=== PATIENT | female | born 1980 | race American Indian/Alaskan Native ===

== ENCOUNTER 2021-07-06 10:46 | Day surgery (SDC) | payer MEDICAID ==
[~2021-07-06 10:46] MED LIST: SODIUM CHLORIDE 0.9% 1000 ML 1,000 ML IV SCH
[2021-07-06] MEDS ORDERED: WATER FOR IRRIG STERILE 250 ML BOTTLE IR ONE (11:43)
[2021-07-06] MEDS ORDERED: WATER FOR IRRIG STERILE 1,000 ML BOTTLE ONE (11:44)
--- NOTE | 2021-07-06 12:36 | Anesthesia Day of Surgery ---
Anesthesia Day of Surgery - Day of Surgery Patient Examined: Yes Patient H&P Reviewed: Yes Patient is NPO: Yes
--- NOTE | 2021-07-06 12:40 | Anesthesia Consultation ---
Anesthesia Consult and Med Hx Date of service: 07/06/21 - Airway Anesthetic Teeth Evaluation: Good ROM Head & Neck: Adequate Mental/Hyoid Distance: Adequate Mallampati Class: Class I Intubation Access Assessment: Good - Pulmonary Exam CTA: Yes - Cardiac Exam Cardiac Exam: RRR - Pre-Operative Health Status ASA Pre-Surgery Classification: ASA2 Proposed Anesthetic Plan: MAC - Pulmonary Hx Smoking: No Hx Asthma: Yes Hx Sleep Apnea: Yes (Resolved with weight loss) - Cardiovascular System Hx Hypertension: Yes (Resolved with weight loss) - Gastrointestinal Hx Gastroesophageal Reflux Disease: Yes (Gastric bypass 2016) - Endocrine Hx Insulin Dependent Diabetes: Yes (Gastric bypass 2016) - Hematic Hx Anemia: Yes (in past) - Other Systems Hx Alcohol Use: Yes (OCCAS) Hx Obesity: Yes
[2021-07-06] MEDS ORDERED: propofoL 200 MG/20 ML VIAL IV ONE ×2 (12:52→12:53)
--- NOTE | 2021-07-06 13:40 | Procedure Note ---
Date of procedure: 07/06/21 Pre-op diagnosis: Abdominal/ F/H/O gastric Cancer/ S/P Gastric Bypass/ R/O Colitis Post-op diagnosis: other (Mild to Moderate Erosive Esophagitis/R/O Eosinophilic Esophagitis/ Gastritis/ S/P Gastric Bypass/ R/O Microscopic Colitis/ No Colon Polyp or Diverticular disease or Internal Hemorrhoids noted/ Prep wqas fair) Procedure: EGD with Biopsy/ Colonoscopy with Cold Biopsy Anesthesia: [facility] [place] Surgeon: PATY FINE Estimated blood loss: minimal Pathology: list Specimen disposition: to lab Condition: stable Disposition: same day (Treat with PPi, prn Bentyl for abdominal pain, encourage OTC Probiotic, and avoid aspirin and NSAID for 5 days, and F/U in 1 to 2 weeks ([phone]).)
--- NOTE | 2021-07-06 13:58 | Operative Report ---
DATE OF SURGERY: 07/06/2021 INDICATIONS: This is a 40-year-old -[place] female with a history of gastric bypass and a family history of gastric cancer. She has been having some abdominal pain. EGD showed mild to moderate erosive esophagitis, status post partial gastric resection secondary to the gastric bypass and some gastritis, but no peptic ulcer disease. Colonoscopy was done to make sure there was not any significant lower GI pathology present. DESCRIPTION OF PROCEDURE: Procedure was done after getting informed consent with MAC anesthesia. Initial rectal examination was unremarkable. The instrument was passed through the rectum onto the cecum, which was identified with ileocecal valve and the appendiceal orifice. The terminal ileum could not be intubated. The visualization was fair. Because of the fair prep, cecum, ascending colon, transverse colon, descending colon and sigmoid showed normal mucosa. Random biopsies were done to rule out for possible microscopic colitis. There was no evidence of any colon polyps, diverticular disease and the rectum did not show any internal hemorrhoid on the retroverted view. The prep was fair with minimal bleeding from the biopsy sites. ASSESSMENT: Abdominal pain, rule out microscopic colitis, rule out colon. No colon polyps, diverticula or internal hemorrhoids were noted. Prep was fair. PLAN: To treat the patient with PPI, p.r.n. dose of Bentyl for abdominal pain. Encouraged the patient to take probiotic and have the patient follow up in the office in 1-2 weeks' time. Procedure was done in the GI lab with assistance of the GI lab team, which included the GI nurse, the technology and engineering teacher and with assistance of Anesthesia. TID: [id number] RECEIPT: [id number] LUKE/JERED
--- NOTE | 2021-07-06 14:02 | Operative Report ---
DATE OF SURGERY: 07/06/2021 PROCEDURE PERFORMED: EGD. INDICATIONS: This is a 40-year-old -[place] female with a family history of gastric cancer, status post gastric bypass and history of abdominal pain. EGD was done to make sure there was not any significant upper GI pathology present. DESCRIPTION OF PROCEDURE: Procedure was done after getting informed consent with MAC anesthesia. The instrument was passed through the hypopharynx into the esophagus, which showed some [id number] distal erosive esophagitis. Photodocumentation was obtained and biopsy was done from the distal esophagus to assess for the severity of the erosive esophagitis as well as from the mid esophagus to assess for possible eosinophilic esophagitis. The stomach showed a very small gastric remnant. The afferent and efferent loops of the small intestine were evaluated and showed normal mucosa. Biopsy was done from the gastric remnant to assess for possible H. pylori for gastritis. No gastric ulcer disease or any other significant pathology was noted. There was minimal bleeding associated with the procedure. No complications associated with the procedure. ASSESSMENT: Abdominal pain, status post gastric bypass, family history of gastric cancer, [id number] distal erosive esophagitis, rule out eosinophilic esophagitis, gastritis, partial gastric resection. PLAN: Treat the patient with PPI p.r.n. dose of Bentyl. Encouraged the patient to take probiotics. Have the patient to avoid aspirin and aspirin-related products for the next few days and follow up in the office in 1-2 weeks' time. A colonoscopy will also be done for further assessment of the abdominal pain and to assess for possible colon polyps. Procedure was done in the GI lab with assistance of the GI lab team, which included the GI nurse, the library information technician and with assistance of anesthesia. TID: [id number] RECEIPT: [id number] LUKE/DION
[2021-07-06 14:28] VITALS: BP 141/71
--- NOTE | 2021-07-06 18:17 | Post Anesthesia Evaluation ---
- Post Anesthesia Evaluation Patient Participated: Yes Airway Patent: Yes Stable Respiratory Function: Yes Nausea/Vomiting: No Temp > 96.8F: Yes Pain Manageable: Yes Adequeate Hydration: Yes Anesthesia Complications: No Block Receding Appropriately: Not Applicable Patient on Ventilator: No
== END 2021-07-06 14:30 | disposition home or self-care (01) ==
LOC: GIO 10:46
DX: R10.9 Unspecified abdominal pain (principal); K21.00 Gastro-esophageal reflux disease with esophagitis, without bleeding; K29.70 Gastritis, unspecified, without bleeding; K63.89 Other specified diseases of intestine; I10 Essential (primary) hypertension; J45.909 Unspecified asthma, uncomplicated; E66.9 Obesity, unspecified; E11.9 Type 2 diabetes mellitus without complications; D64.9 Anemia, unspecified; E78.00 Pure hypercholesterolemia, unspecified; Z79.899 Other long term (current) drug therapy; Z98.51 Tubal ligation status; Z72.89 Other problems related to lifestyle; Z98.890 Other specified postprocedural states; Z88.8 Allergy status to other drugs, medicaments and biological substances
CPT/HCPCS: 43239; 45380; 88305; 88342; J2704; J7030; J7120; Q0162